=== PATIENT | male | born 1935 | race African-American/Black ===

== ENCOUNTER → 2020-07-18 | Outpatient (CLI) | payer OTHER ==
[~2020-07-18] MED LIST: AMBIEN5 MG PO; ATIVAN0.5 MG PO; CATAPRES0.1 MG PO; COMTAN200 MG PO; CYMBALTA30 MG PO; DUONEB 0.5-3(2.53 ML HHN; EFFEXOR-XR75 MG PO; ESSENTIAL DAIL1 EAC1 PO; FLOMAX0.4 MG PO; LISINOPRIL10 MG ORAL; MIRTAZAPINE15 MG ORAL; NORVASC5 MG PO; PROTONIX40 MG PO; REGLAN5 MG PO; ROBITUSSIN100 MG/52 PO; SINEMET 25/1001 EA PO; TRAMADOL HCL50 MG ORAL; TYLENOL100 MG/1 M PO; VICODIN 5-5001 EACH PO; VISINE30 ML BOTH EYES; VITAMIN C500 M1 ORAL; [UNRECOGNIZED DRUG - OTHER] PO
--- NOTE | 2020-07-18 21:32 | Diagnostic Imaging Report ---
EXAM: CT Abdomen and Pelvis Without Intravenous Contrast CLINICAL HISTORY: Abdominal pain and distention. TECHNIQUE: Axial computed tomography images of the abdomen and pelvis without intravenous contrast. CTDI is 6.4 mGy and DLP is 312.1 mGy-cm. One or more of the following dose reduction techniques were used: automated exposure control, adjustment of the mA and/or kV according to patient size, use of iterative reconstruction technique. COMPARISON: 06/25/2012. FINDINGS: Limitations: Evaluation of the viscera is limited due to lack of intravenous contrast administration. Lung bases: Patchy airspace disease posteriorly at the lung bases possibly in the basilar atelectasis versus early or residual pneumonia. Clinical correlation is advised. Pleural space: Small right pleural effusion. Heart: Mild cardiomegaly. Mediastinum: Moderate hiatal hernia and probable distal esophagitis. ABDOMEN: Liver: Diffuse fatty infiltration of the liver is noted. Scattered hepatic hypodensities are noted largest of which have Hounsfield measurements compatible with simple hepatic cyst. Gallbladder and bile ducts: See below. Pancreas: The head, body, tail of the pancreas and the gallbladder are unremarkable. No ductal dilation. Spleen: Spleen is normal in contour. Adrenals: 1 cm probable left adrenal adenoma. No follow-up is necessary. Right adrenal gland is unremarkable. Kidneys and ureters: No renal calculus or hydronephrosis. Stomach and bowel: Fluid-filled stomach. Moderate quantity of stool throughout the colon. There is marked distention of the rectosigmoid with stool. The rectosigmoid measures 13.3 x 1 x 13.2 cm compatible with marked fecal impaction. Wall thickening of the rectosigmoid compatible with inflammation. PELVIS: Appendix: The appendix is seen on axial image 85 and is unremarkable. Bladder: Bladder is underdistended. No stones. Reproductive: Prostate gland measures 4.3 x 6.5 cm. ABDOMEN and PELVIS: Intraperitoneal space: Unremarkable. No free air. No significant fluid collection. Bones/joints: Moderate degenerative disc disease of the thoracolumbar spine. No spondylolysis or spinal listhesis. Sacrum and coccyx are unremarkable. No acute fracture. No dislocation. Soft tissues: Ischiorectal fat is clean. 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 IVC filter is noted in place. Lymph nodes: No retroperitoneal lymphadenopathy. No pelvic or inguinal lymphadenopathy. IMPRESSION: 1. Marked distention of the rectosigmoid compatible with marked fecal impaction. 2. Minimal wall thickening and inflammatory changes about the distended rectosigmoid.
== END | disposition home or self-care (01) ==
LOC: CAT 20:20
DX: R10.9 Unspecified abdominal pain (principal); R14.0 Abdominal distension (gaseous); K44.9 Diaphragmatic hernia without obstruction or gangrene; J90 Pleural effusion, not elsewhere classified; K76.89 Other specified diseases of liver; M51.35 Other intervertebral disc degeneration, thoracolumbar region
CPT/HCPCS: 74176